=== PATIENT | female | born 2000 | race Caucasian/White ===

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

== ENCOUNTER → 2019-11-26 11:52 | Outpatient (CLI) | payer OTHER, SELFPAY ==
[2019-11-28 01:10] LABS: COVID19 Sendout Not Detected (Not Detected)
== END ==
PROVIDERS: PCP Family Medicine; Visit Provider Physician Assistant
DX: R05 Cough (principal)
CPT/HCPCS: 87635

== ENCOUNTER → 2020-04-21 12:22 | Outpatient (CLI) | payer OTHER, SELFPAY ==
[2020-04-21 13:33] LABS: Add Manual Diff / Slide Review NO; Basophils Absolute Auto 100 /uL (0-100); Basophils Percent Auto 1.1 % (0-2); Eosinophils Absolute Auto 100 /uL (0-450); Hematocrit 43.1 % (36-46); Hemoglobin 14.2 g/dL (12.0-16.0); Lymphocytes Absolute Auto 1600 /uL (1100-4500); Lymphocytes Percent Auto 33.5 % (25-40); Mean Corpuscular Hemoglobin 28.5 PG (26-34); Mean Corpuscular Volume 86.4 fL (80-100); Monocytes Absolute Auto 300 /uL (0-900); Monocytes Percent Auto 5.2 % (3-14); Neutrophils Absolute Auto 2800 /uL (1500-7000); Neutrophils Percent Auto 58.2 % (50-75); Platelet Count 277 X10^3/uL (150-400); Red Blood Cell Count 4.98 X10^6/uL (4.0-5.2); Red Cell Distribution Width 13.9 % (11.6-14.8); White Blood Cell Count 4.9 X10^3/uL (4.5-11.0)
== END ==
PROVIDERS: PCP Family Medicine; Referring Provider Family Medicine; Visit Provider Family Medicine
DX: N92.1 Excessive and frequent menstruation with irregular cycle (principal)
CPT/HCPCS: 36415; 85025

== ENCOUNTER → 2020-04-24 14:13 | Outpatient (CLI) | payer OTHER, SELFPAY ==
--- NOTE | 2020-04-24 14:14 | DI.US.S_ITS ---
PROCEDURE: US PELVIC COMPLETE INDICATIONS: bleeding TECHNIQUE: Real-time scanning was performed of the pelvic organs, with image documentation. Additional endovaginal scanning was not performed due to young age of the patient. COMPARISON: None. FINDINGS: Transabdominal scanning: Limited scanning through the kidneys shows no hydronephrosis. No pathologic free abdominal or pelvic fluid. Endovaginal scanning: Uterus: Uterus is normal in size at 3.2 x 5.0 x 7.0 cm, anteverted. The endometrium measures 7.0 mm in combined thickness. Ovaries: The right ovary measures 2.9 x 1.8 x 1.9 cm and the left measures 3.3 x 1.6 x 1.7 cm. IMPRESSION: No uterine fibroid found, no abnormal endometrial mass identified. Ovaries appear normal. Dictated by: Demetrius Bal M.D. on 04/24/2020 at 16:01 Approved by: Demetrius Bal M.D. on 04/24/2020 at 16:03
== END ==
PROVIDERS: PCP Family Medicine; Referring Provider Family Medicine; Visit Provider Family Medicine
DX: N92.0 Excessive and frequent menstruation with regular cycle (principal)
CPT/HCPCS: 76856

== ENCOUNTER → 2020-12-01 12:42 | Outpatient (CLI) | payer OTHER, SELFPAY ==
[2020-12-01 13:46] LABS: Add Manual Diff / Slide Review NO; Basophils Absolute Auto 0 /uL (0-100); Basophils Percent Auto 0.9 % (0-2); Eosinophils Absolute Auto 200 /uL (0-450); Eosinophils Percent Auto 3.2 % (2-4); Hemoglobin 14.7 g/dL (12.0-16.0); Lymphocytes Absolute Auto 1600 /uL (1100-4500); Lymphocytes Percent Auto 32.1 % (25-40); Mean Corpuscular HGB Conc 33.4 % (30-36); Mean Corpuscular Hemoglobin 29.5 PG (26-34); Mean Corpuscular Volume 88.3 fL (80-100); Monocytes Absolute Auto 400 /uL (0-900); Monocytes Percent Auto 7.5 % (3-14); Neutrophils Absolute Auto 2900 /uL (1500-7000); Neutrophils Percent Auto 56.3 % (50-75); Platelet Count 281 X10^3/uL (150-400); Red Blood Cell Count 4.99 X10^6/uL (4.0-5.2); Red Cell Distribution Width 13.6 % (11.6-14.8); White Blood Cell Count 5.1 X10^3/uL (4.5-11.0)
[2020-12-01 14:08] LABS: Prolactin 9.3 ng/mL (3.0-18.6)
[2020-12-01 14:09] LABS: Free T4, Direct Thyroxine 1.09 ng/dL (0.78-2.19)
[2020-12-01 14:23] LABS: Thyroid Stimulating Hormone 1.48 uIU/mL (0.47-4.68)
== END ==
PROVIDERS: PCP Family Medicine; Referring Provider Obstetrics & Gynecology; Visit Provider Obstetrics & Gynecology
DX: N93.9 Abnormal uterine and vaginal bleeding, unspecified (principal)
CPT/HCPCS: 36415; 84146; 84439; 84443; 85025

== ENCOUNTER → 2020-12-11 10:09 | Outpatient (CLI) | payer OTHER, SELFPAY ==
[2020-12-11 10:54] LABS: Rheumatoid Factor < 8.6 IU/mL (<12.0)
[2020-12-12 17:08] LABS: SS A Ro Sjogrens Antibody < 0.2 AI (0.0-0.9); SS B La Sjogrens Antibody < 0.2 AI (0.0-0.9)
[2020-12-13 18:52] LABS: ANA Screen, IFA Negative (.)
== END ==
PROVIDERS: PCP Family Medicine; Referring Provider Family Medicine; Visit Provider Family Medicine
DX: H04.123 Dry eye syndrome of bilateral lacrimal glands (principal); L85.3 Xerosis cutis; R68.2 Dry mouth, unspecified
CPT/HCPCS: 36415; 86038; 86235; 86430

== ENCOUNTER → 2020-12-14 10:32 | Outpatient (CLI) | payer OTHER, SELFPAY ==
--- NOTE | 2020-12-14 10:33 | DI.RAD.S_ITS ---
PROCEDURE: XR FOREARM RT 2V INDICATIONS: r wrist pain TECHNIQUE: 2 views of the forearm were acquired. COMPARISON: None. FINDINGS: Bones: No fractures or dislocations. No suspicious bony lesions. Soft tissues: No suspicious soft tissue calcifications or masses. Soft tissues are unremarkable. IMPRESSION: No fracture Dictated by: Toribio Gold M.D. on 12/14/2020 at 10:58 Approved by: Toribio Gold M.D. on 12/14/2020 at 11:00
--- NOTE | 2020-12-14 10:33 | DI.RAD.S_ITS ---
PROCEDURE: XR WRIST RT MIN 3V INDICATIONS: r wrist pain TECHNIQUE: 4 views of the wrist were acquired. COMPARISON: None. FINDINGS: Bones: No fractures or dislocations. No suspicious bony lesions. Scattered degenerative subchondral sclerosis and spurring. Soft tissues: No suspicious soft tissue calcifications. IMPRESSION: No acute abnormality. If the patient's pain or other symptoms persist, consider further evaluation with MRI Dictated by: Toribio Gold M.D. on 12/14/2020 at 11:01 Approved by: Toribio Gold M.D. on 12/14/2020 at 11:02
--- NOTE | 2020-12-14 10:33 | DI.RAD.S_ITS ---
PROCEDURE: XR HAND RT MIN 3V INDICATIONS: r wrist pain TECHNIQUE: 3 views of the hand(s) acquired. COMPARISON: None. FINDINGS: Bones: No fractures or dislocations. Carpal bones are normally aligned. No suspicious bony lesions. Soft tissues: No suspicious soft tissue calcifications. IMPRESSION: No fracture. If the patient's pain or other symptoms persist, consider further evaluation with MRI Dictated by: Toribio Gold M.D. on 12/14/2020 at 11:00 Approved by: Toribio Gold M.D. on 12/14/2020 at 11:01
== END ==
PROVIDERS: PCP Family Medicine; Referring Provider Physician Assistant; Visit Provider Physician Assistant
DX: M25.531 Pain in right wrist (principal); M79.641 Pain in right hand; M79.631 Pain in right forearm
CPT/HCPCS: 73090; 73110; 73130

== ENCOUNTER → 2020-12-25 10:02 | Outpatient (CLI) | payer OTHER, SELFPAY ==
[2020-12-25 10:57] LABS: Influenza A - CEPHEID Flu A NEGATIVE (NEGATIVE); Influenza B - CEPHEID Flu B NEGATIVE (NEGATIVE)
[2020-12-25 11:13] LABS: COVID19 -Nasal RAPID Negative (Negative)
== END ==
PROVIDERS: PCP Family Medicine; Visit Provider Student in an Organized Health Care Education/Training Program
DX: R05 Cough (principal); R09.81 Nasal congestion; Z20.822 Contact with and (suspected) exposure to COVID-19
CPT/HCPCS: 87502; 87635